=== PATIENT | female | born 1990 | race Caucasian/White ===

== ENCOUNTER 2018-01-27 04:00 | Inpatient (IN) ==
[2018-01-27] MEDS ORDERED: Ondansetron 4 MG/2 ML VIAL IVP PRN ×2 (04:17→08:17)
[2018-01-27] MEDS ORDERED: Naloxone 0.4 MG/ML INJ IVP PRN ×2 (04:17→08:17)
[2018-01-27] MEDS ORDERED: Metoclopramide 10 MG/2 ML VIAL IVP PRN (04:17)
[2018-01-27] MEDS ORDERED: miSOPROStol 100 MCG TABLET PO PRN (04:17)
[2018-01-27] MEDS ORDERED: Lidocaine 1% 20 ML MDV ID PRN (04:17)
[2018-01-27] MEDS ORDERED: Famotidine 20 MG/2 ML VIAL IVP PRN (04:17)
[2018-01-27] MEDS ORDERED: *HR* Nalbuphine 10 MG/ML AMPUL IVP PRN (04:17)
[2018-01-27] MEDS ORDERED: Ringers Solution, Lactated 1,000 ML IVC SCH (04:30)
[2018-01-27] MEDS ORDERED: miSOPROStol 25 MCG TABLET VG SCH (04:45)
[2018-01-27 05:14] LABS: Basophils % 0.4 %; Eosinophils % 0.4 %; Hematocrit 33.7 % (35.3-44.9); Hemoglobin 11.3 g/dL (11.5-15.4); Immature Granulocytes % 0.4 % (0-4); Lymphocytes # 1.8 K/mcL (0.6-4.6); Lymphocytes % 26.1 %; Mean Corpuscular HGB Conc 33.5 g/dL (31.6-35.5); Mean Corpuscular Hemoglobin 31.8 pg (28.0-33.3); Mean Corpuscular Volume 94.9 fL (83.0-100.0); Mean Platelet Volume 9.7 fL (9.4-12.4); Monocytes # 0.4 K/mcL (0.0-1.3); Neutrophils # 4.5 K/mcL (1.6-8.9); Platelet Count 227 K/mcL (140-400); Red Blood Count 3.55 M/mcL (3.82-4.97); Red Cell Distribution Width 12.3 % (11.5-14.5); Segmented Neutrophils % 66.7 %
[2018-01-27 05:20] LABS: Amphetamine Screen,Urine Negative ng/mL (Cutoff=1000); Barbiturate Screen,Urine Negative ng/mL (Cutoff=200); Benzodiazepines Screen,Urine Negative ng/mL (Cutoff=200); Cannabinoid Screen,Urine Negative ng/mL (Cutoff = 50); Cocaine Screen,Urine Negative ng/mL (Cutoff= 300); Opiate Screen,Urine Negative ng/mL (Cutoff=300); Phencyclidine Screen,Urine Negative ng/mL (Cutoff=25)
--- NOTE | 2018-01-27 08:11 | Anesthesia Evaluation PreOp ---
Date of Encounter: 01/27/18 Time of Encounter: 08:06 - Past History Planned Operation: YOEL Cardiac History: Denies any Significant Hx Pulmonary History: Denies Any Significant HX BICYCLE I ASSEMBLER History: Denies Any Significant HX Other Medical History: Denies Any Significant HX, Other Anesthesia History: No Prior Anesthetic Complications, Past Anesthesia (hx vaginal repair post fall as a child) : Yes Alcohol Use: none Drug use: none Medications and Allergies Ferrous Sulfate [Iron] 1 tab PO BID 01/27/18 [History] Vit #108/Iron/FA [ One Tablet] 1 tab PO DAILY 01/27/18 [History] Allergy/AdvReac Type Severity Reaction Status Date / Time Penicillins Allergy Swelling Verified 07/11/17 14:09 of Lip/Tongue/Throat sulfamethoxazole Allergy Swelling Verified 01/27/18 04:35 [From Bactrim] of Lip/Tongue/Throat trimethoprim [From Bactrim] Allergy Swelling Verified 01/27/18 04:35 of Lip/Tongue/Throat - Meds/Allergy Pre-op Review Medications Reviewed: Yes Allergies Reviewed: Yes Beta Blockers on Current Med List: No Anesthesia Results - Labs 01/27/18 04:44 Anesthesia Exam BP120/70 P 63 T 97.0 R 18 Height: 5'3" Weight: 97.2kg NPO (# of Hours): 4 Pain Scale: 9 Pain Scale Used: Numeric (1 - 10) - HEENT Pupil (Motor): Pupils equal Mallampati: II Teeth: Normal Oral Opening: Greater than 3 - BICYCLE I ASSEMBLER LOC: Oriented BICYCLE I ASSEMBLER Motor: Normal RUE, Normal LUE, Normal RLE, Normal LLE, Normal Face BICYCLE I ASSEMBLER Sensory: Normal: RUE, LUE, RLE, LLE, Face - Cardiac Rhythm: Regular Murmur: None JVD: No Carotid Bruit: No - Pulmonary Breath Sounds: bilateral Clear Respiratory Effort: Symmetrical Anesthesia Assess/Plan ASA Score: 2 Level of consciousness: Cooperative Anesthetic Plan: Epidural Autologous Blood: No Monitoring Plan: Standard Monitors Recovery Plan: Other
[2018-01-27] MEDS ORDERED: *HR* Ropivacaine/PF 0.2% 20 ML VIAL EP ONE (08:17)
[2018-01-27] MEDS ORDERED: EPHEDrine 50 MG/ML VIAL IVP PRN (08:17)
[2018-01-27] MEDS ORDERED: *HR* FentaNYL (PF) 100 MCG/2 ML VIAL EP ONE (08:17)
[2018-01-27] MEDS ORDERED: Epidural Premix (fent/bupiv) 110 ML EP SCH (08:30)
[2018-01-27] MEDS ORDERED: *HR* FentaNYL (PF) 100 MCG/2 ML VIAL ONE (08:34)
[2018-01-27] MEDS ORDERED: Lidocaine -MPF 2% 5 ML VIAL ONE (08:34)
[2018-01-27] MEDS ORDERED: *HR* Ropivacaine/PF 0.2% 20 ML VIAL ONE (08:35)
--- NOTE | 2018-01-27 09:14 | OB/GYN History & Physical ---
Date of Encounter: 01/27/18 Time of Encounter: 09:07 Assessment and Plan (1) 39 weeks gestation of Current visit: Yes Status: Acute 28 y/o @ 39+1 weeks, elective IOL, GBS neg, O+ Plan: cytotec 25mcg Q 4hrs prn vagina wth re evaluation after 4 hrs, ok for epidural if she desires, will AROM with advanced dilation, anticipate History of Present Illness HPI: Ms. Pruitt is a 28 year old female @ 39+1 weeks who presents for elective IOL. She does not report LOF, VB or ctxs, feels good FM. She is GBS neg and O+. So far her course was uncomplicated. Past Med Surg Social Fam HX - Past Medical History Medical history: no medical history Psychiatric history: no psych history - Past Surgical History Additional surgical history: vaginal surgery - Social History Smoking Status: Former smoker Smokeless Tobacco Status: No Alcohol use: none Drug use: none - Family History Mother Living Status: Still Living Hx Family Cardiac Disorders: Yes (HTN) Obstetrical History - Pregnancies : 3 Para: 2 Term: 2 : 0 Ab's: 0 Livin Medications and Allergies Ferrous Sulfate [Iron] 1 tab PO BID 01/27/18 [History] Vit #108/Iron/FA [ One Tablet] 1 tab PO DAILY 01/27/18 [History] Allergy/AdvReac Type Severity Reaction Status Date / Time Penicillins Allergy Swelling Verified 07/11/17 14:09 of Lip/Tongue/Throat sulfamethoxazole Allergy Swelling Verified 01/27/18 04:35 [From Bactrim] of Lip/Tongue/Throat trimethoprim [From Bactrim] Allergy Swelling Verified 01/27/18 04:35 of Lip/Tongue/Throat Review of System OB All systems PM: reviewed and no additional remarkable complaints except as stated Exam - Constitutional Constitutional: no acute distress - HEENT HEENT: PERRL - Neck Neck exam: full ROM - Lungs Respiratory exam: CTAB - Cardiovascular Cardiovascular exam: RRR - Abdomen Abdomen: Present: gravid - Cervix Dilation: 3 Effacement: 80 Results Result Diagrams: 01/27/18 04:44 Abnormal lab results RBC 3.55 M/mcL (3.82-4.97) L 01/27/18 04:44 Hgb 11.3 g/dL (11.5-15.4) L 01/27/18 04:44 Hct 33.7 % (35.3-44.9) L 01/27/18 04:44 All other labs normal. - VTE Reasons for not Prescribing Prophylaxis: Treatment not Indicated - Low risk for VTE
--- NOTE | 2018-01-27 09:17 | Anesthesia Procedures ---
Date of Encounter: 01/27/18 Time of Encounter: 08:41 Procedures: Anesthesia - Epidural/Spinal Patient ID/Chart reviewed: Yes Patient examined: Yes OB Eval: Gestational age: 39.1 OB Eval: : 3 OB Eval: Hx Para: 2 OB Eval: Dilated at (cm): 4 OB Eval: Contractions: Non-stressed pattern Consent Obtained: Yes Supplemental Oxygen: None/Room Air Site Prep: Aseptic Technique, Sterile prep and drape, Povidone-Iodine 1% Patient position: upright Local Anesthetic: Lidocaine 1% Amount of Local Anesthetic used: 3 Touhy Needle Gauge: 18 Touhy Needle Depth (cm): 6 Catheter Depth at Skin (cm): 15 Test Dose (1.5% Lido + Epi): Volume given (mls): 3 Test Dose Result: Negative Loading Dose: Fentanyl (mcg): 100 Loading Dose: Other: Ropivicaine 0.2% 10ml Loading Dose Administered: Thru Catheter Infusion Med: 0.125% Bupivacaine w/ 2 mcg/ml Fentanyl Infusion Rate (mls/hr): [address]: Tegaderm, Tape Interspace Used: L3-L4 Loss of Resistance (ANGELA): Yes Blood: No CSF: No Paresthesia: No Procedure: YOEL placed 1st pass in upright position without any immediate noted complications. VSS and FHT stable throughout. Vitals + FHT's: 0841 BP 116/63 P 67 R 20 0908 BP 116/64 P 56 R 16 FHT 130s
[2018-01-27] MEDS ORDERED: Oxytocin 20 units/ LR 1000 mL 20 UNIT/1,000 ML BAG IVC ONE ×2 (09:42→11:30)
--- NOTE | 2018-01-27 09:59 | OB/GYN Procedure Note ---
Delivery - Delivery Date: 01/27/18 Provider: Michelle Alba Intrapartum events: none Delivery induction: misoprostol Delivery augmentation: rupture of membranes (spontaneous) Delivery monitor: external FHT, external uterine Anesthesia: epidural Quantitated Blood Loss: 100 - Repair Episiotomy: none Laceration Description: None - Complications Delivery complications: none - Disposition Mom disposition: stable in LDR disposition: stable in LDR - Comments Comments: Mrs Pruitt is a 28 y/o now who delivered a viable female infant @ 09:50AM, infant delivered SHIRAZ, no nuchal cord, cord was cut, clamped and handed to mother. Placenta delivered @ 09:53AM. EBL 100cc. APGARs 9/10, weight 3110g (6lbs 14oz). No lacerations. Mother and stable.
[2018-01-27] MEDS ORDERED: Measles/Mumps/Rubella Vacc 0.5 ML VIAL SQ PRN (16:17)
[2018-01-27] MEDS ORDERED: Oxytocin 20 units/ LR 1000 mL 20 UNIT/1,000 ML BAG IVC SCH (16:17)
[2018-01-27] MEDS ORDERED: Ibuprofen 600 MG TABLET PO PRN (16:17)
[2018-01-28 06:15] LABS: Basophils % 0.2 %; Eosinophils # 0.1 K/mcL (0.0-0.6); Hemoglobin 11.8 g/dL (11.5-15.4); Immature Granulocytes % 0.5 % (0-4); Lymphocytes # 1.9 K/mcL (0.6-4.6); Lymphocytes % 20.9 %; Mean Corpuscular HGB Conc 33.7 g/dL (31.6-35.5); Mean Corpuscular Hemoglobin 32.1 pg (28.0-33.3); Mean Corpuscular Volume 95.1 fL (83.0-100.0); Mean Platelet Volume 9.7 fL (9.4-12.4); Monocytes # 0.7 K/mcL (0.0-1.3); Neutrophils # 6.5 K/mcL (1.6-8.9); Platelet Count 169 K/mcL (140-400); Red Blood Count 3.68 M/mcL (3.82-4.97); Red Cell Distribution Width 12.4 % (11.5-14.5); Segmented Neutrophils % 70.4 %
[2018-01-28 08:22] VITALS: BP 118/72
[2018-01-28] MEDS ORDERED: Prenatal Vit/FA 1 EACH TABLET PO SCH (09:00)
[2018-01-28] MEDS ORDERED: NON-FORMULARY MEDICATION 1 EACH EACH (Prenatal Vit #108/Iron/Fa [Prenatal One Tablet] 1 TA PO SCH (09:00)
--- NOTE | 2018-01-28 09:16 | Discharge Summary ---
Date of Encounter: 01/28/18 Time of Encounter: 09:13 - Discharge Diagnosis (1) Status post vaginal delivery Priority: Secondary Status: Acute Comments: Status post day 1 Meeting day 1 milestones Pain is well controlled Ambulating without dizziness Appetite has returned Voiding and passing flatus Lochia light, discussed bleeding in period Mood is appropriate Planning IUD for control Healthy female doing well, formula feeding, plans on pumping for supplementation support as needed Well to discharge Follow up in 4 weeks (2) 39 weeks gestation of Priority: Primary Status: Acute Comments: 28 y/o female Now after at 39 weeks 1 day - Discharge Medications Prescriptions: RX: Ibuprofen [Motrin] 600 mg PO Q6HR PRN #30 tablet PRN Reason: Cramping RX: Docusate [Colace] 100 mg PO BID #30 capsule RX: Ferrous Sulfate 325 mg PO DAILY #90 tablet Home Medications: RX: Vit #108/Iron/FA [ One Tablet] 1 tab PO DAILY 01/27/18 [History] RX: Docusate [Colace] 100 mg PO BID #30 capsule 01/28/18 [Rx] RX: Ferrous Sulfate 325 mg PO DAILY #90 tablet 01/28/18 [Rx] RX: Ibuprofen [Motrin] 600 mg PO Q6HR PRN #30 tablet 01/28/18 [Rx] Allergies/Adverse Reactions: Allergy/AdvReac Type Severity Reaction Status Date / Time Penicillins Allergy Swelling Verified 07/11/17 14:09 of Lip/Tongue/Throat sulfamethoxazole Allergy Swelling Verified 01/27/18 04:35 [From Bactrim] of Lip/Tongue/Throat trimethoprim [From Bactrim] Allergy Swelling Verified 01/27/18 04:35 of Lip/Tongue/Throat Data Procedures and tests throughout hospitalization: Laboratory Tests 01/27/18 01/27/18 01/28/18 04:44 04:44 05:58 WBC 6.8 9.2 RBC 3.55 L 3.68 L Hgb 11.3 L 11.8 Hct 33.7 L 35.0 L MCV 94.9 95.1 MCH 31.8 32.1 MCHC 33.5 33.7 RDW 12.3 12.4 Plt Count 227 169 MPV 9.7 9.7 Immature Gran % 0.4 0.5 Seg Neutrophils % 66.7 70.4 Lymphocytes % 26.1 20.9 Monocytes % 6.0 7.0 Eosinophils % 0.4 1.0 Basophils % 0.4 0.2 Neutrophils # 4.5 6.5 Lymphocytes # 1.8 1.9 Monocytes # 0.4 0.7 Eosinophils # 0.0 0.1 Basophils # 0.0 0.0 Urine Opiates Screen Negative Ur Barbiturates Screen Negative Ur Phencyclidine Scrn Negative Ur Amphetamines Screen Negative U Benzodiazepines Scrn Negative Urine Cocaine Screen Negative U Marijuana (THC) Screen Negative Ur Drug Screen Interp See Below Labs on day of discharge: Labs from last 24 hours 01/28/18 05:58 WBC 9.2 RBC 3.68 L Hgb 11.8 Hct 35.0 L MCV 95.1 MCH 32.1 MCHC 33.7 RDW 12.4 Plt Count 169 MPV 9.7 Immature Gran % 0.5 Seg Neutrophils % 70.4 Lymphocytes % 20.9 Monocytes % 7.0 Eosinophils % 1.0 Basophils % 0.2 Neutrophils # 6.5 Lymphocytes # 1.9 Monocytes # 0.7 Eosinophils # 0.1 Basophils # 0.0 Date of admission: 01/27/18 04:15 Consults: 01/27/18 16:17 Consult to [employer]er [CONS] Routine Comment: Vaginal delivery, consult needed Discharging clinician: Katelin Guy Anticipated date of discharge: 01/28/18 - Patient Status Disposition: Home, Self-Care Condition: Good Functional capacity at discharge: independent ambulation Overall status at discharge: patient is back to baseline - Discharge Instructions Follow Up With: NONE,PCP [Primary Care Provider] - Michelle Alba MD [Partnered Physician] - - Diet and Activity Activity: resume usual activities as tolerated Diet: advance to your usual diet Hospital Course Reason for admission: induction of labor Delivery: Episiotomy: none Laceration: none Other procedures: none complications: none Discharge diagnosis: IUP at term delivered [place] baby: female Hospital course: Mrs Pruitt is a 28 y/o now who delivered a viable female @ 09:50AM, infant delivered SHIRAZ, no nuchal cord, cord was cut, clamped and handed to mother. Placenta delivered @ 09:53AM. EBL 100cc. APGARs 9/10, weight 3110g (6lbs 14oz). No lacerations. Mother and stable. Time Attestation: Total time spent providing and/or coordinating discharge services: Time Spent: Greater than 30 minutes Exam - Constitutional Vitals: Temp Pulse Resp BP Pulse Ox 97.7 F 64 16 118/72 98 01/28/18 07:30 01/28/18 07:30 01/28/18 07:30 01/28/18 07:30 01/28/18 03:00 General appearance IM: A&O X 3, pleasant, no acute distress, answers questions appropriately - Respiratory Respiratory exam: Present: CTAB. Absent: rales, rhonchi, wheezes - Cardiovascular Cardiovascular exam IM: Present: RRR, +S1, +S2 - GI/Abdominal GI/Abdominal exam IM: normal bowel sounds, soft - External exam: normal external exam Uterine Tone: Firm Uterus Position: At Umbilicus - Extremities Exam Extremities exam IM: Present: normal inspection, warm. Absent: calf tenderness, pedal edema - Neurological Exam Neurological exam: CN II-XII intact, oriented X3, no focal deficits - Psychiatric Additional comments: mood is appropriate - Attending Attestation I saw this patient and agree with assessment. Yelena Brown CNM
== END 2018-01-28 17:40 | disposition home or self-care (01) | DRG 807 ==
LOC: 1NENULAB 04:15 → 1NENUOBS 12:04
PROVIDERS: ADMIT Registered Nurse; ATTEND Registered Nurse